=== PATIENT | male | born 1960 ===

== ENCOUNTER 2020-08-17 01:30 | Inpatient (IN) | payer MEDICAID, MEDICARE ==
[2020-08-17 16:12] LABS: Basophils % (Auto) 0.6 % (0.0-1.8); Eosinophils # (Auto) 0.1 K/mm3 (0.0-0.4); Eosinophils % (Auto) 1.1 % (0.0-4.3); Hematocrit 50.5 % (35.5-45.6); Hemoglobin 16.2 gm/dl (11.8-15.2); Lymphocytes # (Auto) 1.9 K/mm3 (1.2-5.4); Lymphocytes % (Auto) 30.1 % (13.4-35.0); Mean Corpuscular HGB Conc 32 % (32-34); Mean Corpuscular Volume 87 fl (84-94); Monocytes # (Auto) 0.6 K/mm3 (0.0-0.8); Monocytes % (Auto) 9.2 % (0.0-7.3); Platelet Count 284 K/mm3 (140-440); Red Blood Count 5.79 M/mm3 (3.65-5.03); Red Cell Distribution Width 17.2 % (13.2-15.2)
[2020-08-17 16:37] LABS: Alanine Aminotransferase 16 units/L (7-56); Albumin 4.3 g/dL (3.9-5); BUN/Creatinine Ratio 15; Blood Urea Nitrogen 18 mg/dL (9-20); Calcium 10.7 mg/dL (8.4-10.2); Chol/HDL Ratio 2.73 %; HDL Cholesterol 65 mg/dL (40-59); Hemolysis Index 51; LDL Cholesterol,Direct 105 mg/dL (50-130)
--- NOTE | 2020-08-18 08:50 | History and Physical Report ---
GP History & Physical - History of Present Illness Date of admission: 08/17/20 Date of Examination: 08/18/20 Reason for Admission: Danger to self, Danger to others, Failure of Outpatient Treatment History of Present Illness: Per Admission Note: Patient arrived on unit 08/17/20 @ 1200 noon. This service writer received patient at 1900. The patient has been oriented to the unit. He presents as anxious and mildly irritable. He went to outside ED and complained of feeling homicidal. He stated he felt like hurting others. He denies wanting to hurt himself. He reports being off psych meds for 6 months. He admits to . He has been oriented to the unit. Aidan Leonard is a 59y/o male patient who states he was admitted to the hospital for feeling homicidal and suicidal. He says he was hearing voices telling him to hurt someone. The patient also verbalizes cocaine use. He could not recall any of his home medications. He says he's been off for about two months, although it is noted in the admission note that he's been for 6 months. The patient says he has a history of schizophrenia and bipolar. PAST PSYCHIATRIC HISTORY: Diagnoses: Schizophrenia, bipolar Suicide attempts or Self-harm behavior: Yes "long time ago" Prior psychiatric hospitalizations: Yes Substance Abuse history: Cocaine Previous psychiatric medications tried: Yes, could not recall "been off" Outpatient treatment: Yes PAST MEDICAL HISTORY: None reported Family Psychiatric History: None reported or documented SOCIAL HISTORY Marital Status: Living Arrangements: Homeless Employment Status: Disabled Access to guns/weapons: Denies Education: high school diploma History of Abuse: Denies Legal History: Denies REVIEW OF SYSTEMS Constitutional: Negative for weight loss ENT: Negative for stridor Respiratory: Negative for cough or hemoptysis All other systems reviewed and are negative MENTAL STATUS EXAMINATION General Appearance and Behavior: Age appropriate, good hygiene, not wearing appropriate clothes, fair eye contact, cooperative polite with questioning. Cooperation: Participating, withdrawn Psychomotor Behavior: Psychomotor normal Mood: "Depressed" Affect and affective range: restricted Thought Process: Goal directed Speech: Normal tone and pace Intellectual Functioning: Average Thought Content Suicidal Ideation: Yes Homicidal Ideation: Yes Hallucinations: Auditory Delusions: None elicited Impulse Control: Impaired Insight and Judgment: Poor insight and judgment Memory: Limited Attention: Divided attention impaired Orientation: A/o x 3 Assessment and Plan (1) Schizophrenia Current Visit: Yes Status: Acute Treatment Plan Patient admitted for inpatient psychiatric evaluation, medication adjustment and close monitoring The patient's behavior, mood, sleep and appetite will be closely monitored. Patient enrolled in individual and group therapeutic sessions and encouraged to attend. Patient provided with a safe and structured environment. Patient's physical health needs will be addressed by the Hospitalist. Hospitalist Consulted Labs including CBC, CMP, Lipid profile and Hemoglobin A1C levels ordered for baseline reference Social Assessment will be completed and the Fuel Verification Technician will work with patient and family to ensure a suitable and safe disposition Medication adjustment will be made as clinically indicated Start Depakote DR 125mg po BID Start Olanzapine 2.5mg po daily Start Trazodone 50mg po qhs Usual Wellness Jewish/Preservation: - Start Melatonin 5 mg po QHS to promote circadian rhythm - Start [place]-3 for brain health, reduce impulsivity, and as adjunctive treatment for mood disorder, continue upon discharge given overall benefits. The patient agreed on the treatment plan, understood the risk, benefit, alternative treatment, potential consequence of no treatment, and gave informed consent. Estimated days: 7 Post hospital care: primary care provider, psychiatric provider This certifies that Aidan Leonard will be treated for the symptoms of HI/SI, agitation and hallucinations Case staffed with Dr. Fernandez Legal Status: Voluntary Reaction to Hospitalization: Accepting Medications and Allergies Allergies Allergy/AdvReac Type Severity Reaction Status Date / Time No Known Allergies Allergy Unverified 08/17/20 15:40 Home Medications Medication Instructions Recorded Confirmed Last Taken Type Cyclobenzaprine [Flexeril] 10 mg PO TID PRN 08/17/20 08/17/20 Unknown History Naproxen [Naprosyn] 500 mg PO BID PRN 08/17/20 08/17/20 Unknown History hydroCHLOROthiazide [HCTZ] 25 mg PO QDAY 08/17/20 08/17/20 08/17/20 08:59 History lisinopriL [Lisinopril] 20 mg PO DAILY 08/17/20 08/17/20 08/17/20 08:59 History metFORMIN [Glucophage] 500 mg PO BID 08/17/20 08/17/20 08/17/20 08:59 History methOCARBAMOL [Robaxin TAB] 500 mg PO QID PRN 08/17/20 08/17/20 Unknown History Results - Results Labs/Vitals: Laboratory Last Values WBC 6.2 K/mm3 (4.5-11.0) 08/17/20 15:52 RBC 5.79 M/mm3 (3.65-5.03) H 08/17/20 15:52 Hgb 16.2 gm/dl (11.8-15.2) H 08/17/20 15:52 Hct 50.5 % (35.5-45.6) H 08/17/20 15:52 MCV 87 fl (84-94) 08/17/20 15:52 MCH 28 pg (28-32) 08/17/20 15:52 MCHC 32 % (32-34) 08/17/20 15:52 RDW 17.2 % (13.2-15.2) H 08/17/20 15:52 Plt Count 284 K/mm3 (140-440) 08/17/20 15:52 Lymph % (Auto) 30.1 % (13.4-35.0) 08/17/20 15:52 [place] % (Auto) 9.2 % (0.0-7.3) H 08/17/20 15:52 Eos % (Auto) 1.1 % (0.0-4.3) 08/17/20 15:52 Baso % (Auto) 0.6 % (0.0-1.8) 08/17/20 15:52 Lymph # (Auto) 1.9 K/mm3 (1.2-5.4) 08/17/20 15:52 [place] # (Auto) 0.6 K/mm3 (0.0-0.8) 08/17/20 15:52 Eos # (Auto) 0.1 K/mm3 (0.0-0.4) 08/17/20 15:52 Baso # (Auto) 0.0 K/mm3 (0.0-0.1) 08/17/20 15:52 Seg Neutrophils % 59.0 % (40.0-70.0) 08/17/20 15:52 Seg Neutrophils # 3.7 K/mm3 (1.8-7.7) 08/17/20 15:52 Sodium 134 mmol/L (137-145) L 08/17/20 15:52 Potassium 5.2 mmol/L (3.6-5.0) H 08/17/20 15:52 Chloride 98.1 mmol/L (98-107) 08/17/20 15:52 Carbon Dioxide 26 mmol/L (22-30) 08/17/20 15:52 Anion Gap 15 mmol/L 08/17/20 15:52 BUN 18 mg/dL (9-20) 08/17/20 15:52 Creatinine 1.2 mg/dL (0.8-1.3) 08/17/20 15:52 Estimated GFR > 60 ml/min 08/17/20 15:52 BUN/Creatinine Ratio 15 % 08/17/20 15:52 Glucose 95 mg/dL (75-100) 08/17/20 15:52 POC Glucose 115 mg/dL (70-105) H 08/17/20 19:55 Hemoglobin A1c 6.1 % (4-6) H 08/17/20 15:52 Calcium 10.7 mg/dL (8.4-10.2) H 08/17/20 15:52 Total Bilirubin 0.20 mg/dL (0.1-1.2) 08/17/20 15:52 AST 20 units/L (5-40) 08/17/20 15:52 ALT 16 units/L (7-56) 08/17/20 15:52 Alkaline Phosphatase 83 units/L (35-129) 08/17/20 15:52 Total Protein 7.7 g/dL (6.3-8.2) 08/17/20 15:52 Albumin 4.3 g/dL (3.9-5) 08/17/20 15:52 Albumin/Globulin Ratio 1.3 % 08/17/20 15:52 Triglycerides 167 mg/dL (2-149) H 08/17/20 15:52 Cholesterol 178 mg/dL (50-199) 08/17/20 15:52 LDL Cholesterol Direct 105 mg/dL (50-130) 08/17/20 15:52 HDL Cholesterol 65 mg/dL (40-59) H 08/17/20 15:52 Cholesterol/HDL Ratio 2.73 % 08/17/20 15:52 TSH 0.598 mlU/mL (0.270-4.200) 08/17/20 15:52 Last Vital Signs Temp 97.9 F 08/17/20 19:26 Pulse 88 08/17/20 19:26 Resp 16 08/17/20 19:26 BP 121/65 08/17/20 19:26 Pulse Ox 99 08/17/20 19:26 Physical Examination - Constitutional Vitals: Vital Signs Temp Pulse Resp BP Pulse Ox 97.9 F 88 16 121/65 99 08/17/20 19:26 08/17/20 19:26 08/17/20 19:26 08/17/20 19:26 08/17/20 19:26 Temperature -Last 24 Hours Temperature 97.9 F Temperature 98.4 F Mental Status Exam - Vital signs Last Vital Signs Temp 97.9 F 08/17/20 19:26 Pulse 88 08/17/20 19:26 Resp 16 08/17/20 19:26 BP 121/65 08/17/20 19:26 Pulse Ox 99 08/17/20 19:26 Physician Certification - Certification Statement Physician Certification Statement: This is an acknowledgement statement that AIDAN LEONARD SR is a 59 year old M who requires inpatient psychiatric admission for treatment which could reasonably be expected to improve the patient's condition for Estimated period of time patient will need to remain in the hospital: [ ] Plan for post-hospital care: [ ]
[2020-08-18] MEDS ORDERED: CYCLOBENZAPRINE 10 MG TAB PO PRN (08:57)
[2020-08-18] MEDS: OMEGA-3 FATTY ACIDS/FISH OIL 1 GRAM CAP PO SCH ×2 (09:44→21:19)
[2020-08-18] MEDS: LISINOPRIL 20 MG TAB PO SCH (09:44)
[2020-08-18] MEDS: DIVALPROEX DR 125 MG TAB PO SCH ×2 (09:44→21:18)
[2020-08-18] MEDS: hydroCHLOROthiazide 25 MG TAB PO SCH (09:44)
[2020-08-18] MEDS: metFORMIN 500 MG TAB PO SCH ×2 (09:47→17:21)
[2020-08-18] MEDS ORDERED: NAPROXEN 500 MG TAB PO PRN (10:00)
[2020-08-18] MEDS: traZODone 50 MG TAB PO SCH (21:19)
[2020-08-18] MEDS ORDERED: MELATONIN 5 MG TAB PO PRN (22:00)
[2020-08-19] MEDS: metFORMIN 500 MG TAB PO SCH ×2 (07:51→16:38)
--- NOTE | 2020-08-19 09:18 | Progress Note ---
Subjective Date of service: 08/19/20 Principal diagnosis: Schizophrenia Subjective Comment: The patient was seen today, he is lying down. He says he feels depressed still. The patient says he's not as homicidal but feels suicidal at times. He denies hallucinations of any kind. He says he is starting to feel better with the medications. REVIEW OF SYSTEMS Constitutional: Negative for weight loss ENT: Negative for stridor Respiratory: Negative for cough or hemoptysis All other systems reviewed and are negative MENTAL STATUS EXAMINATION General Appearance and Behavior: Age appropriate, good hygiene, not wearing appropriate clothes, fair eye contact, cooperative polite with questioning. Cooperation: Participating, withdrawn Psychomotor Behavior: Psychomotor normal Mood: "Depressed" Affect and affective range: restricted Thought Process: Goal directed Speech: Normal tone and pace Intellectual Functioning: Average Thought Content Suicidal Ideation: Yes Homicidal Ideation: Yes Hallucinations: Auditory Delusions: None elicited Impulse Control: Impaired Insight and Judgment: Poor insight and judgment Memory: Limited Attention: Divided attention impaired Orientation: A/o x 3 Assessment and Plan (1) Schizophrenia Current Visit: Yes Status: Acute Treatment Plan Patient admitted for inpatient psychiatric evaluation, medication adjustment and close monitoring The patient's behavior, mood, sleep and appetite will be closely monitored. Patient enrolled in individual and group therapeutic sessions and encouraged to attend. Patient provided with a safe and structured environment. Patient's physical health needs will be addressed by the Hospitalist. Hospitalist Consulted Labs including CBC, CMP, Lipid profile and Hemoglobin A1C levels ordered for baseline reference Social Assessment will be completed and the Assistant Cross Country Coach will work with patient and family to ensure a suitable and safe disposition Medication adjustment will be made as clinically indicated Continue Depakote DR 125mg po BID Continue Olanzapine 2.5mg po daily Continue Trazodone 50mg po qhs Usual Wellness Hindu/Preservation: - Start Melatonin 5 mg po QHS to promote circadian rhythm - Start [place]-3 for brain health, reduce impulsivity, and as adjunctive treatment for mood disorder, continue upon discharge given overall benefits. The patient agreed on the treatment plan, understood the risk, benefit, alternative treatment, potential consequence of no treatment, and gave informed consent. Estimated days: 7 Post hospital care: primary care provider, psychiatric provider This certifies that Reggie Leonard will be treated for the symptoms of HI/SI, agitation and hallucinations Case staffed with Dr. Fernandez Medications and Allergies Allergies Allergy/AdvReac Type Severity Reaction Status Date / Time No Known Allergies Allergy Unverified 08/17/20 15:40 Home Medications Medication Instructions Recorded Confirmed Last Taken Type Cyclobenzaprine [Flexeril] 10 mg PO TID PRN 08/17/20 08/17/20 Unknown History Naproxen [Naprosyn] 500 mg PO BID PRN 08/17/20 08/17/20 Unknown History hydroCHLOROthiazide [HCTZ] 25 mg PO QDAY 08/17/20 08/17/20 08/17/20 08:59 History lisinopriL [Lisinopril] 20 mg PO DAILY 08/17/20 08/17/20 08/17/20 08:59 History metFORMIN [Glucophage] 500 mg PO BID 08/17/20 08/17/20 08/17/20 08:59 History methOCARBAMOL [Robaxin TAB] 500 mg PO QID PRN 08/17/20 08/17/20 Unknown History Active Meds: Active Medications Divalproex Sodium (Divalproex Dr 125 Mg Tab) 125 mg PO BID [facility] Last Admin: 08/18/20 21:18 Dose: 125 mg Documented by: Fish Oil ([place]-3 Fatty Acids/Fish Oil 1 Gram Cap) 2,000 mg PO BID [facility] Last Admin: 08/18/20 21:19 Dose: 2,000 mg Documented by: Hydrochlorothiazide (Hydrochlorothiazide 25 Mg Tab) 25 mg PO QDAY [facility] Last Admin: 08/18/20 09:44 Dose: 25 mg Documented by: Lisinopril (Lisinopril 20 Mg Tab) 20 mg PO DAILY [facility] Last Admin: 08/18/20 09:44 Dose: 20 mg Documented by: Melatonin (Melatonin 5 Mg Tab) 5 mg PO QHS PRN PRN Reason: Sleep Metformin HCl (Metformin 500 Mg Tab) 500 mg PO BIDDIAB [facility] Last Admin: 08/19/20 07:51 Dose: 500 mg Documented by: Methocarbamol (Methocarbamol 500 Mg Tab) 500 mg PO QID PRN PRN Reason: Pain, Moderate (4-6) Naproxen (Naproxen 500 Mg Tab) 500 mg PO BID PRN PRN Reason: Pain, Moderate (4-6) Olanzapine (Olanzapine 2.5 Mg Tab) 2.5 mg PO QDAY [facility] Last Admin: 08/18/20 09:44 Dose: 2.5 mg Documented by: Trazodone HCl (Trazodone 50 Mg Tab) 50 mg PO QHS [facility] Last Admin: 08/18/20 21:19 Dose: 50 mg Documented by: Results - Results Labs/Vitals: Laboratory Last Values WBC 6.2 K/mm3 (4.5-11.0) 08/17/20 15:52 RBC 5.79 M/mm3 (3.65-5.03) H 08/17/20 15:52 Hgb 16.2 gm/dl (11.8-15.2) H 08/17/20 15:52 Hct 50.5 % (35.5-45.6) H 08/17/20 15:52 MCV 87 fl (84-94) 08/17/20 15:52 MCH 28 pg (28-32) 08/17/20 15:52 MCHC 32 % (32-34) 08/17/20 15:52 RDW 17.2 % (13.2-15.2) H 08/17/20 15:52 Plt Count 284 K/mm3 (140-440) 08/17/20 15:52 Lymph % (Auto) 30.1 % (13.4-35.0) 08/17/20 15:52 [place] % (Auto) 9.2 % (0.0-7.3) H 08/17/20 15:52 Eos % (Auto) 1.1 % (0.0-4.3) 08/17/20 15:52 Baso % (Auto) 0.6 % (0.0-1.8) 08/17/20 15:52 Lymph # (Auto) 1.9 K/mm3 (1.2-5.4) 08/17/20 15:52 [place] # (Auto) 0.6 K/mm3 (0.0-0.8) 08/17/20 15:52 Eos # (Auto) 0.1 K/mm3 (0.0-0.4) 08/17/20 15:52 Baso # (Auto) 0.0 K/mm3 (0.0-0.1) 08/17/20 15:52 Seg Neutrophils % 59.0 % (40.0-70.0) 08/17/20 15:52 Seg Neutrophils # 3.7 K/mm3 (1.8-7.7) 08/17/20 15:52 Sodium 134 mmol/L (137-145) L 08/17/20 15:52 Potassium 5.2 mmol/L (3.6-5.0) H 08/17/20 15:52 Chloride 98.1 mmol/L (98-107) 08/17/20 15:52 Carbon Dioxide 26 mmol/L (22-30) 08/17/20 15:52 Anion Gap 15 mmol/L 08/17/20 15:52 BUN 18 mg/dL (9-20) 08/17/20 15:52 Creatinine 1.2 mg/dL (0.8-1.3) 08/17/20 15:52 Estimated GFR > 60 ml/min 08/17/20 15:52 BUN/Creatinine Ratio 15 % 08/17/20 15:52 Glucose 95 mg/dL (75-100) 08/17/20 15:52 POC Glucose 95 mg/dL (70-105) 08/18/20 11:26 Hemoglobin A1c 6.1 % (4-6) H 08/17/20 15:52 Calcium 10.7 mg/dL (8.4-10.2) H 08/17/20 15:52 Total Bilirubin 0.20 mg/dL (0.1-1.2) 08/17/20 15:52 AST 20 units/L (5-40) 08/17/20 15:52 ALT 16 units/L (7-56) 08/17/20 15:52 Alkaline Phosphatase 83 units/L (35-129) 08/17/20 15:52 Total Protein 7.7 g/dL (6.3-8.2) 08/17/20 15:52 Albumin 4.3 g/dL (3.9-5) 08/17/20 15:52 Albumin/Globulin Ratio 1.3 % 08/17/20 15:52 Triglycerides 167 mg/dL (2-149) H 08/17/20 15:52 Cholesterol 178 mg/dL (50-199) 08/17/20 15:52 LDL Cholesterol Direct 105 mg/dL (50-130) 08/17/20 15:52 HDL Cholesterol 65 mg/dL (40-59) H 08/17/20 15:52 Cholesterol/HDL Ratio 2.73 % 08/17/20 15:52 TSH 0.598 mlU/mL (0.270-4.200) 08/17/20 15:52 Last Vital Signs Temp 98.2 F 08/19/20 08:07 Pulse 93 H 08/19/20 08:07 Resp 18 08/19/20 08:07 BP 118/62 08/19/20 08:07 Pulse Ox 98 08/19/20 08:07
[2020-08-19] MEDS: hydroCHLOROthiazide 25 MG TAB PO SCH (09:45)
[2020-08-19] MEDS: DIVALPROEX DR 125 MG TAB PO SCH ×2 (09:45→21:18)
[2020-08-19] MEDS: OMEGA-3 FATTY ACIDS/FISH OIL 1 GRAM CAP PO SCH ×2 (09:45→21:18)
[2020-08-19] MEDS: LISINOPRIL 20 MG TAB PO SCH (09:45)
--- NOTE | 2020-08-19 17:40 | Consultation ---
History of Present Illness - Reason for Consult Consult date: 08/19/20 Medical Management Requesting physician: ALE GRULLON - History of Present Illness 59 YO Male with DM, HTN, Schizophrenia admitted to [facility] for psychiatric stabilization. Consult placed by Dr. Grullon for medical management. The patient was seen and evaluated in the recreation room. Patient denies fever, chills, chest pain, palpitation, productive cough, skin rash, recent ill contacts, or known exposure to COVID-19. No reported nursing events. Past History Past Medical History: diabetes, hypertension, other (See HPI) Past Surgical History: No surgical history, Other (Reviewed) Social history: single. denies: smoking, alcohol abuse, prescription drug abuse Family history: diabetes, hypertension Medications and Allergies Allergies Allergy/AdvReac Type Severity Reaction Status Date / Time No Known Allergies Allergy Unverified 08/17/20 15:40 Home Medications Medication Instructions Recorded Confirmed Last Taken Type Cyclobenzaprine [Flexeril] 10 mg PO TID PRN 08/17/20 08/17/20 Unknown History Naproxen [Naprosyn] 500 mg PO BID PRN 08/17/20 08/17/20 Unknown History hydroCHLOROthiazide [HCTZ] 25 mg PO QDAY 08/17/20 08/17/20 08/17/20 08:59 History lisinopriL [Lisinopril] 20 mg PO DAILY 08/17/20 08/17/20 08/17/20 08:59 History metFORMIN [Glucophage] 500 mg PO BID 08/17/20 08/17/20 08/17/20 08:59 History methOCARBAMOL [Robaxin TAB] 500 mg PO QID PRN 08/17/20 08/17/20 Unknown History Active Meds: Active Medications Divalproex Sodium (Divalproex Dr 125 Mg Tab) 125 mg PO BID [facility] Last Admin: 08/19/20 09:45 Dose: 125 mg Documented by: Fish Oil ([place]-3 Fatty Acids/Fish Oil 1 Gram Cap) 2,000 mg PO BID [facility] Last Admin: 08/19/20 09:45 Dose: 2,000 mg Documented by: Hydrochlorothiazide (Hydrochlorothiazide 25 Mg Tab) 25 mg PO QDAY [facility] Last Admin: 08/19/20 09:45 Dose: 25 mg Documented by: Lisinopril (Lisinopril 20 Mg Tab) 20 mg PO DAILY [facility] Last Admin: 08/19/20 09:45 Dose: 20 mg Documented by: Melatonin (Melatonin 5 Mg Tab) 5 mg PO QHS PRN PRN Reason: Sleep Metformin HCl (Metformin 500 Mg Tab) 500 mg PO BIDDIAB [facility] Last Admin: 08/19/20 16:38 Dose: 500 mg Documented by: Methocarbamol (Methocarbamol 500 Mg Tab) 500 mg PO QID PRN PRN Reason: Pain, Moderate (4-6) Naproxen (Naproxen 500 Mg Tab) 500 mg PO BID PRN PRN Reason: Pain, Moderate (4-6) Olanzapine (Olanzapine 2.5 Mg Tab) 2.5 mg PO QDAY [facility] Last Admin: 08/19/20 09:45 Dose: 2.5 mg Documented by: Trazodone HCl (Trazodone 50 Mg Tab) 50 mg PO QHS [facility] Last Admin: 08/18/20 21:19 Dose: 50 mg Documented by: Review of Systems Constitutional: no weight loss, no weight gain, no fever, no chills, no sweats Ears, nose, mouth and throat: no ear pain, no decreased hearing, no nasal congestion, no nasal discharge Cardiovascular: no chest pain, no palpitations, no rapid/irregular heart beat, no syncope, no lightheadedness Respiratory: no cough, no cough with sputum, no excessive sputum, no hemoptysis Gastrointestinal: no abdominal pain, no vomiting, no constipation, no change in bowel habits, no hematemesis Genitourinary Male: no hematuria, no flank pain, no discharge, no urinary hesitancy, no nocturia Rectal: no pain, no incontinence, no bleeding Musculoskeletal: no neck stiffness, no low back pain Integumentary: no rash, no redness, no sores, no jaundice Neurological: no head injury, no paralysis, no parathesias, no tingling, no seizures, no syncope, no tremors Psychiatric: no anxiety, no change in sleep habits, no sleep disturbances, no change in libido, no disorientation Endocrine: no cold intolerance, no polyphagia, no polydipsia, no weight change Hematologic/Lymphatic: no easy bruising, no easy bleeding Allergic/Immunologic: no urticaria, no allergic rhinitis, no wheezing Exam - Constitutional Vitals: Temp Pulse Resp BP Pulse Ox 98.2 F 93 H 18 118/62 98 08/19/20 08:07 08/19/20 09:45 08/19/20 08:07 08/19/20 09:45 08/19/20 08:07 General appearance: Present: no acute distress - EENT Eyes: Present: PERRL ENT: hearing intact, clear oral mucosa - Neck Neck: Present: supple, normal ROM - Respiratory Respiratory effort: normal Respiratory: bilateral: CTA - Cardiovascular Heart Sounds: Present: S1 & S2. Absent: rub, click - Extremities Extremities: pulses symmetrical, No edema Peripheral Pulses: within normal limits - Abdominal General gastrointestinal: Present: soft, non-tender, non-distended, normal bowel sounds Male genitourinary: Present: normal - Integumentary Integumentary: Present: clear, warm, dry - Musculoskeletal Musculoskeletal: gait normal, strength equal bilaterally - Psychiatric Psychiatric: cooperative - Neurologic Neurologic: CNII-XII intact, moves all extremities Results - Labs CBC & Chem 7: 08/17/20 15:52 08/17/20 15:52 Assessment and Plan - Patient Problems (1) Hypertension Current Visit: Yes Status: Acute Qualifiers: Hypertension type: essential hypertension Qualified Code(s): I10 - Essential (primary) hypertension Plan to address problem: Monitor blood pressure every shift, continue medical management (2) Diabetes Current Visit: Yes Status: Acute Plan to address problem: Consistent carbohydrate diet, continue oral antihyperglycemic therapy, (3) Schizophrenia Current Visit: Yes Status: Acute Plan to address problem: Continue medical management.
[2020-08-19] MEDS: traZODone 50 MG TAB PO SCH (21:18)
--- NOTE | 2020-08-20 08:30 | Progress Note ---
Subjective Date of service: 08/20/20 Principal diagnosis: Schizophrenia Subjective Comment: The patient was seen today, he is lying down. He says he feels okay at the moment, but down at times. The patient denies SI/HI at present but states last night he felt suicidal. He denies hallucinations of any kind. Reason for continued inpatient treatment: The patient has improved but at times still feels suicidal and down. REVIEW OF SYSTEMS Constitutional: Negative for weight loss ENT: Negative for stridor Respiratory: Negative for cough or hemoptysis All other systems reviewed and are negative MENTAL STATUS EXAMINATION General Appearance and Behavior: Age appropriate, good hygiene, not wearing appropriate clothes, fair eye contact, cooperative polite with questioning. Cooperation: Participating, withdrawn Psychomotor Behavior: Psychomotor normal Mood: "okay, Depressed at times" Affect and affective range: restricted Thought Process: Goal directed Speech: Normal tone and pace Intellectual Functioning: Average Thought Content Suicidal Ideation: Yes Homicidal Ideation: Yes Hallucinations: Auditory Delusions: None elicited Impulse Control: Impaired Insight and Judgment: Poor insight and judgment Memory: Limited Attention: Divided attention impaired Orientation: A/o x 3 Assessment and Plan (1) Schizophrenia Current Visit: Yes Status: Acute Treatment Plan Patient admitted for inpatient psychiatric evaluation, medication adjustment and close monitoring The patient's behavior, mood, sleep and appetite will be closely monitored. Patient enrolled in individual and group therapeutic sessions and encouraged to attend. Patient provided with a safe and structured environment. Patient's physical health needs will be addressed by the Hospitalist. Hospitalist Consulted Labs including CBC, CMP, Lipid profile and Hemoglobin A1C levels ordered for baseline reference Social Assessment will be completed and the Converter Operator will work with patient and family to ensure a suitable and safe disposition Medication adjustment will be made as clinically indicated Increase Depakote DR 250mg po BID Continue Olanzapine 2.5mg po daily Continue Trazodone 50mg po qhs Usual Wellness Judaism/Preservation: - Start Melatonin 5 mg po QHS to promote circadian rhythm - Start [place]-3 for brain health, reduce impulsivity, and as adjunctive treatment for mood disorder, continue upon discharge given overall benefits. The patient agreed on the treatment plan, understood the risk, benefit, alternative treatment, potential consequence of no treatment, and gave informed consent. Estimated days: 4 Post hospital care: primary care provider, psychiatric provider This certifies that Reggie Leonard will be treated for the symptoms of HI/SI, agitation and hallucinations Case staffed with Dr. Fernandez Medications and Allergies Allergies Allergy/AdvReac Type Severity Reaction Status Date / Time No Known Allergies Allergy Unverified 08/17/20 15:40 Home Medications Medication Instructions Recorded Confirmed Last Taken Type Cyclobenzaprine [Flexeril] 10 mg PO TID PRN 08/17/20 08/17/20 Unknown History Naproxen [Naprosyn] 500 mg PO BID PRN 08/17/20 08/17/20 Unknown History hydroCHLOROthiazide [HCTZ] 25 mg PO QDAY 08/17/20 08/17/20 08/17/20 08:59 History lisinopriL [Lisinopril] 20 mg PO DAILY 08/17/20 08/17/20 08/17/20 08:59 History metFORMIN [Glucophage] 500 mg PO BID 08/17/20 08/17/20 08/17/20 08:59 History methOCARBAMOL [Robaxin TAB] 500 mg PO QID PRN 08/17/20 08/17/20 Unknown History Active Meds: Active Medications Divalproex Sodium (Divalproex Dr 125 Mg Tab) 125 mg PO BID [facility] Last Admin: 08/19/20 21:18 Dose: 125 mg Documented by: Fish Oil (Greenup-3 Fatty Acids/Fish Oil 1 Gram Cap) 2,000 mg PO BID [facility] Last Admin: 08/19/20 21:18 Dose: 2,000 mg Documented by: Hydrochlorothiazide (Hydrochlorothiazide 25 Mg Tab) 25 mg PO QDAY [facility] Last Admin: 08/19/20 09:45 Dose: 25 mg Documented by: Lisinopril (Lisinopril 20 Mg Tab) 20 mg PO DAILY [facility] Last Admin: 08/19/20 09:45 Dose: 20 mg Documented by: Melatonin (Melatonin 5 Mg Tab) 5 mg PO QHS PRN PRN Reason: Sleep Metformin HCl (Metformin 500 Mg Tab) 500 mg PO BIDDIAB [facility] Last Admin: 08/19/20 16:38 Dose: 500 mg Documented by: Methocarbamol (Methocarbamol 500 Mg Tab) 500 mg PO QID PRN PRN Reason: Pain, Moderate (4-6) Naproxen (Naproxen 500 Mg Tab) 500 mg PO BID PRN PRN Reason: Pain, Moderate (4-6) Olanzapine (Olanzapine 2.5 Mg Tab) 2.5 mg PO QDAY [facility] Last Admin: 08/19/20 09:45 Dose: 2.5 mg Documented by: Trazodone HCl (Trazodone 50 Mg Tab) 50 mg PO QHS [facility] Last Admin: 08/19/20 21:18 Dose: 50 mg Documented by: Results - Results Labs/Vitals: Laboratory Last Values WBC 6.2 K/mm3 (4.5-11.0) 08/17/20 15:52 RBC 5.79 M/mm3 (3.65-5.03) H 08/17/20 15:52 Hgb 16.2 gm/dl (11.8-15.2) H 08/17/20 15:52 Hct 50.5 % (35.5-45.6) H 08/17/20 15:52 MCV 87 fl (84-94) 08/17/20 15:52 MCH 28 pg (28-32) 08/17/20 15:52 MCHC 32 % (32-34) 08/17/20 15:52 RDW 17.2 % (13.2-15.2) H 08/17/20 15:52 Plt Count 284 K/mm3 (140-440) 08/17/20 15:52 Lymph % (Auto) 30.1 % (13.4-35.0) 08/17/20 15:52 [place] % (Auto) 9.2 % (0.0-7.3) H 08/17/20 15:52 Eos % (Auto) 1.1 % (0.0-4.3) 08/17/20 15:52 Baso % (Auto) 0.6 % (0.0-1.8) 08/17/20 15:52 Lymph # (Auto) 1.9 K/mm3 (1.2-5.4) 08/17/20 15:52 [place] # (Auto) 0.6 K/mm3 (0.0-0.8) 08/17/20 15:52 Eos # (Auto) 0.1 K/mm3 (0.0-0.4) 08/17/20 15:52 Baso # (Auto) 0.0 K/mm3 (0.0-0.1) 08/17/20 15:52 Seg Neutrophils % 59.0 % (40.0-70.0) 08/17/20 15:52 Seg Neutrophils # 3.7 K/mm3 (1.8-7.7) 08/17/20 15:52 Sodium 134 mmol/L (137-145) L 08/17/20 15:52 Potassium 5.2 mmol/L (3.6-5.0) H 08/17/20 15:52 Chloride 98.1 mmol/L (98-107) 08/17/20 15:52 Carbon Dioxide 26 mmol/L (22-30) 08/17/20 15:52 Anion Gap 15 mmol/L 08/17/20 15:52 BUN 18 mg/dL (9-20) 08/17/20 15:52 Creatinine 1.2 mg/dL (0.8-1.3) 08/17/20 15:52 Estimated GFR > 60 ml/min 08/17/20 15:52 BUN/Creatinine Ratio 15 % 08/17/20 15:52 Glucose 95 mg/dL (75-100) 08/17/20 15:52 POC Glucose 95 mg/dL (70-105) 08/19/20 06:00 Hemoglobin A1c 6.1 % (4-6) H 08/17/20 15:52 Calcium 10.7 mg/dL (8.4-10.2) H 08/17/20 15:52 Total Bilirubin 0.20 mg/dL (0.1-1.2) 08/17/20 15:52 AST 20 units/L (5-40) 08/17/20 15:52 ALT 16 units/L (7-56) 08/17/20 15:52 Alkaline Phosphatase 83 units/L (35-129) 08/17/20 15:52 Total Protein 7.7 g/dL (6.3-8.2) 08/17/20 15:52 Albumin 4.3 g/dL (3.9-5) 08/17/20 15:52 Albumin/Globulin Ratio 1.3 % 08/17/20 15:52 Triglycerides 167 mg/dL (2-149) H 08/17/20 15:52 Cholesterol 178 mg/dL (50-199) 08/17/20 15:52 LDL Cholesterol Direct 105 mg/dL (50-130) 08/17/20 15:52 HDL Cholesterol 65 mg/dL (40-59) H 08/17/20 15:52 Cholesterol/HDL Ratio 2.73 % 08/17/20 15:52 TSH 0.598 mlU/mL (0.270-4.200) 08/17/20 15:52 Last Vital Signs Temp 98.7 F 08/19/20 19:53 Pulse 80 08/19/20 19:53 Resp 16 08/19/20 19:53 BP 115/79 08/19/20 19:53 Pulse Ox 98 08/19/20 19:53
[2020-08-20] MEDS: hydroCHLOROthiazide 25 MG TAB PO SCH (11:22)
[2020-08-20] MEDS: OMEGA-3 FATTY ACIDS/FISH OIL 1 GRAM CAP PO SCH ×2 (11:22→21:14)
[2020-08-20] MEDS: LISINOPRIL 20 MG TAB PO SCH (11:22)
[2020-08-20] MEDS: metFORMIN 500 MG TAB PO SCH ×2 (11:24→21:14)
[2020-08-20] MEDS: DIVALPROEX DR 250 MG TAB PO SCH ×2 (11:27→21:14)
[2020-08-20] MEDS: traZODone 50 MG TAB PO SCH (21:14)
--- NOTE | 2020-08-21 08:04 | Progress Note ---
Subjective Date of service: 08/21/20 Principal diagnosis: Schizophrenia Subjective Comment: Psych Nurse: Last evening the patient was quiet but interacts appropriately with peers. He presents as sad and depressed. He denies hi but admits to AH. Patient has a good appetite and is medication compliant. Overnight the patient rested quietly. He presents as sleeping 8 hours. Will continue to monitor patient for safety. Psych Progress HPI In my interview with the patient this morning, the patient reports mood as good with a stable appetite. He states sleep was mosytly fine and but he had a bad dream where a pitbull jumped on him. Patient denies current SI, HI, AH, VH, and contracts to ask the staff for help if any of these symptoms increase. Patient states he is from [facility] where is family is originally from. Reason for continuing inpatient treatment: Review of Symptoms: Constitutional: Negative for weight loss ENT: Negative for stridor Respiratory: Negative for cough or hemoptysis All other systems reviewed and are negative MENTAL STATUS EXAMINATION General Appearance and Behavior: Age appropriate, good hygiene, wearing appropriate clothes, good eye contact, cooperative polite with questioning. Cooperation: Participating/engaged Psychomotor Behavior: unremarkable and within normal limits Mood: Good Affect and affective range: congruent with mood Thought Process: Fluent/Logical, Thought Content: Within reality, Speech: Normal volume, Regular rate and rhythm, Intellectual Functioning: Average Suicidal Ideation: Denies SI Homicidal Ideation: Denies HI Impulse Control: impaired Insight and Judgment: lmproved insight and judgment, Memory: Normal, Attention: Normal, Orientation: Alert, oriented, Assessment and Plan - Patient Problems (1) Schizophrenia Current Visit: Yes Status: Acute Treatment Plan Continue current meds Patient admitted for inpatient psychiatric evaluation, medication adjustment and close monitoring The patient's behavior, mood, sleep and appetite will be closely monitored. Patient enrolled in individual and group therapeutic sessions and encouraged to attend. Patient provided with a safe and structured environment. Patient's physical health needs will be addressed by the Hospitalist. Hospitalist Consulted Labs including CBC, CMP, Lipid profile and Hemoglobin A1C levels ordered for baseline reference Social Assessment will be completed and the Turning Sander Operator will work with patient and family to ensure a suitable and safe disposition Medication adjustment will be made as clinically indicated Usual Wellness Religion/Preservation: - Start Trazodone 50 mg po QHS & 50 mg po QHS PRN between 10 PM & 2 AM for insomnia - Start Melatonin 5 mg po QHS to promote circadian rhythm - Start [place]-3 for brain health, reduce impulsivity, and as adjunctive treatment for mood disorder, continue upon discharge given overall benefits. - Start B1 prophylaxis with 200 mg po for 5 days The patient agreed on the treatment plan, understood the risk, benefit, alternative treatment, potential consequence of no treatment, and gave informed consent. Initial Certification Inpatient psych services: I certify that the inpatient psychiatric services are required for treatment that could reasonably be expected to improve the patient's condition. Estimated days: 3 Post hospital care: primary care provider, psychiatric provider Assessment and Plan - Patient Problems (1) Schizophrenia Current Visit: Yes Status: Acute Medications and Allergies Allergies Allergy/AdvReac Type Severity Reaction Status Date / Time No Known Allergies Allergy Unverified 08/17/20 15:40 Home Medications Medication Instructions Recorded Confirmed Last Taken Type Cyclobenzaprine [Flexeril] 10 mg PO TID PRN 08/17/20 08/17/20 Unknown History Naproxen [Naprosyn] 500 mg PO BID PRN 08/17/20 08/17/20 Unknown History hydroCHLOROthiazide [HCTZ] 25 mg PO QDAY 08/17/20 08/17/20 08/17/20 08:59 History lisinopriL [Lisinopril] 20 mg PO DAILY 08/17/20 08/17/20 08/17/20 08:59 History metFORMIN [Glucophage] 500 mg PO BID 08/17/20 08/17/20 08/17/20 08:59 History methOCARBAMOL [Robaxin TAB] 500 mg PO QID PRN 08/17/20 08/17/20 Unknown History Active Meds: Active Medications Divalproex Sodium (Divalproex Dr 250 Mg Tab) 250 mg PO BID [facility] Last Admin: 08/20/20 21:14 Dose: 250 mg Documented by: Fish Oil ([place]-3 Fatty Acids/Fish Oil 1 Gram Cap) 2,000 mg PO BID [facility] Last Admin: 08/20/20 21:14 Dose: 2,000 mg Documented by: Hydrochlorothiazide (Hydrochlorothiazide 25 Mg Tab) 25 mg PO QDAY [facility] Last Admin: 08/20/20 11:22 Dose: 25 mg Documented by: Lisinopril (Lisinopril 20 Mg Tab) 20 mg PO DAILY [facility] Last Admin: 08/20/20 11:22 Dose: 20 mg Documented by: Melatonin (Melatonin 5 Mg Tab) 5 mg PO QHS PRN PRN Reason: Sleep Last Admin: 08/20/20 21:14 Dose: 5 mg Documented by: Metformin HCl (Metformin 500 Mg Tab) 500 mg PO BIDDIAB [facility] Last Admin: 08/20/20 21:14 Dose: 500 mg Documented by: Methocarbamol (Methocarbamol 500 Mg Tab) 500 mg PO QID PRN PRN Reason: Pain, Moderate (4-6) Naproxen (Naproxen 500 Mg Tab) 500 mg PO BID PRN PRN Reason: Pain, Moderate (4-6) Olanzapine (Olanzapine 2.5 Mg Tab) 2.5 mg PO QDAY [facility] Last Admin: 08/20/20 11:22 Dose: 2.5 mg Documented by: Trazodone HCl (Trazodone 50 Mg Tab) 50 mg PO QHS [facility] Last Admin: 08/20/20 21:14 Dose: 50 mg Documented by: Results - Results Labs/Vitals: Laboratory Last Values WBC 6.2 K/mm3 (4.5-11.0) 08/17/20 15:52 RBC 5.79 M/mm3 (3.65-5.03) H 08/17/20 15:52 Hgb 16.2 gm/dl (11.8-15.2) H 08/17/20 15:52 Hct 50.5 % (35.5-45.6) H 08/17/20 15:52 MCV 87 fl (84-94) 08/17/20 15:52 MCH 28 pg (28-32) 08/17/20 15:52 MCHC 32 % (32-34) 08/17/20 15:52 RDW 17.2 % (13.2-15.2) H 08/17/20 15:52 Plt Count 284 K/mm3 (140-440) 08/17/20 15:52 Lymph % (Auto) 30.1 % (13.4-35.0) 08/17/20 15:52 [place] % (Auto) 9.2 % (0.0-7.3) H 08/17/20 15:52 Eos % (Auto) 1.1 % (0.0-4.3) 08/17/20 15:52 Baso % (Auto) 0.6 % (0.0-1.8) 08/17/20 15:52 Lymph # (Auto) 1.9 K/mm3 (1.2-5.4) 08/17/20 15:52 [place] # (Auto) 0.6 K/mm3 (0.0-0.8) 08/17/20 15:52 Eos # (Auto) 0.1 K/mm3 (0.0-0.4) 08/17/20 15:52 Baso # (Auto) 0.0 K/mm3 (0.0-0.1) 08/17/20 15:52 Seg Neutrophils % 59.0 % (40.0-70.0) 08/17/20 15:52 Seg Neutrophils # 3.7 K/mm3 (1.8-7.7) 08/17/20 15:52 Sodium 134 mmol/L (137-145) L 08/17/20 15:52 Potassium 5.2 mmol/L (3.6-5.0) H 08/17/20 15:52 Chloride 98.1 mmol/L (98-107) 08/17/20 15:52 Carbon Dioxide 26 mmol/L (22-30) 08/17/20 15:52 Anion Gap 15 mmol/L 08/17/20 15:52 BUN 18 mg/dL (9-20) 08/17/20 15:52 Creatinine 1.2 mg/dL (0.8-1.3) 08/17/20 15:52 Estimated GFR > 60 ml/min 08/17/20 15:52 BUN/Creatinine Ratio 15 % 08/17/20 15:52 Glucose 95 mg/dL (75-100) 08/17/20 15:52 POC Glucose 106 mg/dL (70-105) H 08/20/20 19:47 Hemoglobin A1c 6.1 % (4-6) H 08/17/20 15:52 Calcium 10.7 mg/dL (8.4-10.2) H 08/17/20 15:52 Total Bilirubin 0.20 mg/dL (0.1-1.2) 08/17/20 15:52 AST 20 units/L (5-40) 08/17/20 15:52 ALT 16 units/L (7-56) 08/17/20 15:52 Alkaline Phosphatase 83 units/L (35-129) 08/17/20 15:52 Total Protein 7.7 g/dL (6.3-8.2) 08/17/20 15:52 Albumin 4.3 g/dL (3.9-5) 08/17/20 15:52 Albumin/Globulin Ratio 1.3 % 08/17/20 15:52 Triglycerides 167 mg/dL (2-149) H 08/17/20 15:52 Cholesterol 178 mg/dL (50-199) 08/17/20 15:52 LDL Cholesterol Direct 105 mg/dL (50-130) 08/17/20 15:52 HDL Cholesterol 65 mg/dL (40-59) H 08/17/20 15:52 Cholesterol/HDL Ratio 2.73 % 08/17/20 15:52 TSH 0.598 mlU/mL (0.270-4.200) 08/17/20 15:52 Last Vital Signs Temp 97.6 F 08/20/20 19:43 Pulse 83 08/20/20 19:43 Resp 18 08/20/20 19:43 BP 108/63 08/20/20 19:43 Pulse Ox 96 08/20/20 19:43
[2020-08-21] MEDS: hydroCHLOROthiazide 25 MG TAB PO SCH (12:09)
[2020-08-21] MEDS: DIVALPROEX DR 250 MG TAB PO SCH ×2 (12:09→21:12)
[2020-08-21] MEDS: OMEGA-3 FATTY ACIDS/FISH OIL 1 GRAM CAP PO SCH ×2 (12:09→21:12)
[2020-08-21] MEDS: LISINOPRIL 20 MG TAB PO SCH (12:10)
[2020-08-21] MEDS: metFORMIN 500 MG TAB PO SCH ×2 (12:13→19:04)
[2020-08-21] MEDS: traZODone 50 MG TAB PO SCH (21:12)
--- NOTE | 2020-08-22 07:01 | Discharge Summary ---
Providers - Providers Date of Admission: 08/17/20 14:05 Date of discharge: 08/22/20 Attending physician: ALE GRULLON MD 08/17/20 09:21 Consult to Physician [CONS] Routine Comment: Consulting Provider: JESSICA ZEPEDA Physician Instructions: Reason For Exam: manage medical conditions Primary care physician: CREATIVE STRATEGIST Hospitalization Condition: Good Hospital course: The patient was provided inpatient psychiatric treatment with safe and supportive environment, group/individual therapy, psychiatric medication, medication adjustment, adverse effect monitor, medical evaluation, medical treatment, social service assessment, social support meeting, placement assessment and psycho-education. The patients mood, cognition, behavior, motivation, compliance to treatment and appreciation on family/social support are improved and stabilized. At the time of discharge, the patient had no suicidal ideas, no homicidal ideas, no aggressive thoughts, no endangering behavior and no debilitating adverse effects. The patient agreed on the treatment plan, understood the risk, benefit, alternative treatment, potential consequence of no treatment, and gave informed consent. Over 35 minutes spent for discharge process, education and behavioral counselling. Disposition: DC-01 TO HOME OR SELFCARE Allergies/Adverse Reactions: Allergies No Known Allergies Allergy (Unverified 08/17/20 15:40) Vital Signs: Last Vital Signs Temp 98.1 F 08/21/20 19:56 Pulse 76 08/21/20 19:56 Resp 18 08/21/20 19:56 BP 124/62 08/21/20 19:56 Pulse Ox 98 08/21/20 19:56 Last Lab: Laboratory Last Values WBC 6.2 K/mm3 (4.5-11.0) 08/17/20 15:52 RBC 5.79 M/mm3 (3.65-5.03) H 08/17/20 15:52 Hgb 16.2 gm/dl (11.8-15.2) H 08/17/20 15:52 Hct 50.5 % (35.5-45.6) H 08/17/20 15:52 MCV 87 fl (84-94) 08/17/20 15:52 MCH 28 pg (28-32) 08/17/20 15:52 MCHC 32 % (32-34) 08/17/20 15:52 RDW 17.2 % (13.2-15.2) H 08/17/20 15:52 Plt Count 284 K/mm3 (140-440) 08/17/20 15:52 Lymph % (Auto) 30.1 % (13.4-35.0) 08/17/20 15:52 [place] % (Auto) 9.2 % (0.0-7.3) H 08/17/20 15:52 Eos % (Auto) 1.1 % (0.0-4.3) 08/17/20 15:52 Baso % (Auto) 0.6 % (0.0-1.8) 08/17/20 15:52 Lymph # (Auto) 1.9 K/mm3 (1.2-5.4) 08/17/20 15:52 [place] # (Auto) 0.6 K/mm3 (0.0-0.8) 08/17/20 15:52 Eos # (Auto) 0.1 K/mm3 (0.0-0.4) 08/17/20 15:52 Baso # (Auto) 0.0 K/mm3 (0.0-0.1) 08/17/20 15:52 Seg Neutrophils % 59.0 % (40.0-70.0) 08/17/20 15:52 Seg Neutrophils # 3.7 K/mm3 (1.8-7.7) 08/17/20 15:52 Sodium 134 mmol/L (137-145) L 08/17/20 15:52 Potassium 5.2 mmol/L (3.6-5.0) H 08/17/20 15:52 Chloride 98.1 mmol/L (98-107) 08/17/20 15:52 Carbon Dioxide 26 mmol/L (22-30) 08/17/20 15:52 Anion Gap 15 mmol/L 08/17/20 15:52 BUN 18 mg/dL (9-20) 08/17/20 15:52 Creatinine 1.2 mg/dL (0.8-1.3) 08/17/20 15:52 Estimated GFR > 60 ml/min 08/17/20 15:52 BUN/Creatinine Ratio 15 % 08/17/20 15:52 Glucose 95 mg/dL (75-100) 08/17/20 15:52 POC Glucose 79 mg/dL (70-105) 08/21/20 16:47 Hemoglobin A1c 6.1 % (4-6) H 08/17/20 15:52 Calcium 10.7 mg/dL (8.4-10.2) H 08/17/20 15:52 Total Bilirubin 0.20 mg/dL (0.1-1.2) 08/17/20 15:52 AST 20 units/L (5-40) 08/17/20 15:52 ALT 16 units/L (7-56) 08/17/20 15:52 Alkaline Phosphatase 83 units/L (35-129) 08/17/20 15:52 Total Protein 7.7 g/dL (6.3-8.2) 08/17/20 15:52 Albumin 4.3 g/dL (3.9-5) 08/17/20 15:52 Albumin/Globulin Ratio 1.3 % 08/17/20 15:52 Triglycerides 167 mg/dL (2-149) H 08/17/20 15:52 Cholesterol 178 mg/dL (50-199) 08/17/20 15:52 LDL Cholesterol Direct 105 mg/dL (50-130) 08/17/20 15:52 HDL Cholesterol 65 mg/dL (40-59) H 08/17/20 15:52 Cholesterol/HDL Ratio 2.73 % 08/17/20 15:52 TSH 0.598 mlU/mL (0.270-4.200) 08/17/20 15:52 - Discharge Diagnoses (1) Schizophrenia Status: Acute Core Measure Documentation - Palliative Care Palliative Care/ Comfort Measures: Not Applicable - Core Measures Any of the following diagnoses?: none Exam - Constitutional Vitals: Temp Pulse Resp BP Pulse Ox 98.1 F 76 18 124/62 98 08/21/20 19:56 08/21/20 19:56 08/21/20 19:56 08/21/20 19:56 08/21/20 19:56 General appearance: Present: no acute distress - EENT Eyes: Present: PERRL, EOM intact ENT: hearing intact, clear oral mucosa - Neck Neck: Present: supple, normal ROM - Respiratory Respiratory effort: normal - Abdominal Male genitourinary: Present: deferred - Integumentary Integumentary: Present: clear, warm Plan Activity: no restrictions Care Plan Goals: Goals: Maintain good and stable mental health. Plan of Treatment: The patient should be compliant with medications, not to use drugs and not to drink alcohol. The patient understands that if suicidal ideas, homicidal ideas, or any endangering thoughts arise, the patient should immediately seek for emergent assistance including but not limited to crisis hot line and emergency room. Follow up with outpatient Psychiatrist and PCP within 7 - 14 days of discharge. Follow up with: PRIMARY CARE,MD [Primary Care Provider] - 7 Days Prescriptions: traZODone [Desyrel] 50 mg PO QHS #[address] [Depakote Dr] 250 mg PO BID #60 tablet OLANzapine [ZyPREXA] 2.5 mg PO QDAY #30 tablet
[2020-08-22] MEDS: metFORMIN 500 MG TAB PO SCH (08:50)
[2020-08-22 09:32] VITALS: BP 130/65
[2020-08-22] MEDS: LISINOPRIL 20 MG TAB PO SCH (10:50)
[2020-08-22] MEDS: DIVALPROEX DR 250 MG TAB PO SCH (10:50)
[2020-08-22] MEDS: OMEGA-3 FATTY ACIDS/FISH OIL 1 GRAM CAP PO SCH (10:50)
[2020-08-22] MEDS: hydroCHLOROthiazide 25 MG TAB PO SCH (10:50)
== END 2020-08-22 13:30 | disposition home or self-care (01) | DRG 885 ==
LOC: 3A 01:30 → UNDOADMIN 01:30 → 5A 14:05
PROVIDERS: ADMIT Psychiatry & Neurology Psychiatry; ATTEND Psychiatry & Neurology Psychiatry
DX: F20.9 Schizophrenia, unspecified (principal); F14.10 Cocaine abuse, uncomplicated; F31.9 Bipolar disorder, unspecified; I10 Essential (primary) hypertension; E11.9 Type 2 diabetes mellitus without complications; Z79.84 Long term (current) use of oral hypoglycemic drugs; Z82.49 Family history of ischemic heart disease and other diseases of the circulatory system; Z83.3 Family history of diabetes mellitus
CPT/HCPCS: 36415; 80053; 80061; 82962; 83036; 84443; 85025; G0378